=== PATIENT | male | born 2005 | race Two or more races ===

== ENCOUNTER 2023-01-26 19:01 | Emergency (ER) | payer SELFPAY ==
[~2023-01-26] VITALS: Ht 175.3 cm; Wt 99.5 kg
[~2023-01-26 19:01] MED LIST: NOCURR
[2023-01-26] MEDS ORDERED: LIDOCAINE 1% 10 ML VIAL ID ONE (20:15)
[2023-01-26 20:40] VITALS: BP 117/64
== END 2023-01-26 20:50 | disposition still patient (30) ==
LOC: EMS 19:01
DX: D36.7 Benign neoplasm of other specified sites (principal)
CPT/HCPCS: 10060; 99282; J3490

== ENCOUNTER 2023-05-22 20:36 | Emergency (ER) | payer MEDICAID ==
[~2023-05-22] VITALS: Ht 167.6 cm; Wt 92.0 kg
[2023-05-22 20:43] VITALS: TEMP 100.5
[2023-05-22 21:05] LABS: APPEARANCE,URINE CLEAR (CLEAR); BILIRUBIN,URINE NEGATIVE (NEGATIVE); COLOR,URINE YELLOW (YELLOW); GLUCOSE, URINE (UA) NEGATIVE (NEGATIVE); KETONES,URINE NEGATIVE (NEGATIVE); LEUKOCYTE ESTERASE ,URINE MODERATE (NEGATIVE); NITRATE,URINE NEGATIVE (NEGATIVE); OCCULT BLOOD,URINE NEGATIVE (NEGATIVE); PH,URINE 6.5 (5.0-8.0); PROTEIN,URINE 30-70 mg/dL (NEGATIVE); SPECIFIC GRAVITIY, URINE 1.023 (1.003-1.030); UROBILINOGEN,URINE <=1.0 mg/dL (<=1.0)
[2023-05-22 21:20] LABS: RBC,URINE 0-2 /HPF (0-2)
[2023-05-22 21:21] LABS: BACTERIA,URINE Rare /HPF (None Seen)
[2023-05-22 21:28] LABS: BASOPHILS % (AUTO) 0.2 % (0.0-2.0); EOSINOPHILS % (AUTO) 0.3 % (1.0-6.0); HEMATOCRIT 42.2 % (41-53); HEMOGLOBIN 13.9 g/dL (13.5-17.5); LYMPHOCYTES # (AUTO) 1.9 K/uL (1.0-4.8); LYMPHOCYTES % (AUTO) 12.2 % (22.0-44.0); MEAN CORPUSCULAR HEMOGLOBIN 28.3 pg (26.0-34.0); MEAN CORPUSCULAR VOLUME 86 fL (80-100); MONOCYTES # (AUTO) 1.1 K/uL (0.1-1.0); MONOCYTES % (AUTO) 6.7 % (2.0-9.0); NEUTROPHILS # (AUTO) 12.8 K/uL (1.8-7.7); NEUTROPHILS % (AUTO) 80.6 % (40.0-70.0); PLATELET COUNT (AUTO) 386 K/uL (150-450); RED BLOOD CELL COUNT(AUTO) 4.93 MIL/uL (4.50-5.90); RED CELL DISTRIBUTION WIDTH 12.7 % (11.5-14.5); WHITE BLOOD COUNT (AUTO) 15.8 K/uL (4.5-11.0)
[2023-05-22 21:37] LABS: ANION GAP 9 mmol/L (8-16); CALCIUM, TOTAL 9.5 mg/dL (8.8-10.5); CARBON DIOXIDE 29 mmol/L (22-29); CHLORIDE 101 mmol/L (98-107); CREATININE 0.73 mg/dL (0.60-1.30); GLOMERULAR FILTR. RATE CALC > 60 mL/min (>60); GLUCOSE,RANDOM 105 mg/dL (70-110); POTASSIUM 3.6 mmol/L (3.5-5.1); SODIUM SERUM 139 mmol/L (136-145); UREA NITROGEN, BLOOD 11 mg/dL (7-18)
[2023-05-22] MEDS ORDERED: ACETAMINOPHEN 500 MG TABLET PO ONE (22:30)
[2023-05-22] MEDS ORDERED: CefTRIAXone SODIUM 1 GM/VIAL IM ONE (22:30)
[2023-05-22] MEDS ORDERED: LIDOCAINE/PF 1% 2 ML VIAL IM ONE (22:30)
[2023-05-22 23:04] VITALS: BP 115/71; PULSE 69; RESP 16
[2023-05-23] MEDS ORDERED: LEVO-72 PO (00:18)
[2023-05-23] MEDS ORDERED: DOXY-354 PO (00:18)
[2023-05-23] MEDS ORDERED: IBUP-1492 PO (00:18)
== END 2023-05-23 00:29 | disposition home or self-care (01) ==
LOC: EMS 20:38
DX: N45.3 Epididymo-orchitis (principal)
CPT/HCPCS: 99285; 74176; 80048; 81001; 85025; 36415; 87086; 87186; 76870; 87491; 87591; 96372; J0696; J3490